=== PATIENT | male | born 1965 | race Native Hawaiian/Other Pacific Islander ===

== ENCOUNTER 2020-06-14 18:53 | Emergency (ER) | payer SELFPAY ==
[~2020-06-14] VITALS: Ht 152 cm; Wt 77.1 kg
--- NOTE | 2020-06-14 19:23 | ED General ---
General Chief Complaint: Fever-Adult/Adol Stated Complaint: FEVER Source of Information: Patient Exam Limitations: No Limitations History of Present Illness Date Seen by Provider: Jun 14, 2020 Time Seen by Provider: 19:15 Initial Comments Patient is a 55-year-old male who presents to the emergency room desiring a COVID-19 test. Patient states that for the last week he has had "chills" and subjective fever. Patient does not know how high his temperature has been. He denies sore throat he states he had a little bit of runny nose last week. He denies earache congestion currently. No cough or shortness of breath. No abdominal pain, nausea, vomiting or diarrhea. He states he is not had any sick contacts and again just requested COVID-19 test. No other complaints of illness or injury. All other review of systems reviewed and negative except as stated above. Timing/Duration: 1 Week Severity: Mild Associated Systoms: Denies Symptoms Allergies and Home Medications Allergies Coded Allergies: No Known Drug Allergies (Unverified , 06/14/20) Patient Home Medication List Home Medication List Reviewed: Yes Review of Systems Review of Systems Constitutional: see HPI EENTM: no symptoms reported Respiratory: no symptoms reported Cardiovascular: no symptoms reported Gastrointestinal: no symptoms reported Genitourinary: no symptoms reported Musculoskeletal: no symptoms reported Skin: no symptoms reported All Other Systems Reviewed Negative Unless Noted: Yes Past Rwiuzic-Trthzg-Djmkqz Hx Patient Social History Recent Foreign Travel: No Contact w/Someone Who Travel: No Physical Exam Vital Signs Vital Signs - First Documented 06/14/20 19:10 Temp 36.7 Pulse 93 Resp 14 B/P (MAP) 141/87 (105) Pulse Ox 97 O2 Delivery Room Air Capillary Refill : Height, Weight, BMI Height: '" Weight: lbs. oz. kg; BMI Method: General Appearance: No Apparent Distress, WD/WN Eyes: Bilateral Eye PERRL, Bilateral Eye EOMI Respiratory: Lungs Clear, Normal Breath Sounds, No Accessory Muscle Use Cardiovascular: Regular Rate, Rhythm Gastrointestinal: Non Tender, Soft Extremity: Non Tender, No Pedal Edema Neurologic/Psychiatric: Alert, Oriented x3, No Motor/Sensory Deficits, Normal Mood/Affect Skin: Normal Color, Warm/Dry Progress/Results/Core Measures Suspected Sepsis SIRS Temperature: Pulse: Respiratory Rate: Blood Pressure / Mean: Results/Orders Lab Results Laboratory Tests Test 06/14/20 19:14 Range/Units Coronavirus 2019 ([facility]) Negative Negative My Orders Orders - KIRSTEN SMILEY MD Covid 19 Inhouse Test (06/14/20 20:07) Vital Signs/I&O 06/14/20 19:10 Temp 36.7 Pulse 93 Resp 14 B/P (MAP) 141/87 (105) Pulse Ox 97 O2 Delivery Room Air Capillary Refill : Progress Note : Time: 19:26 Progress Note 55-year-old male presents to the emergency room with a chief complaint of desiring a COVID-19 test. Evaluation today includes a physical exam. Patient clinically appears well satting 98 to 99% on room air. Normal blood pressure pu lse and respiratory rate. No clinical or objective findings to warrant further testing from the emergency department. Departure Impression Primary Impression: Viral syndrome Disposition: 01 HOME, SELF-CARE Condition: Stable Departure-Patient Inst. Decision time for Depature: 20:48 Referrals: NO,LOCAL PHYSICIAN (PCP/Family) Primary Care Physician Patient Instructions: Viral Syndrome (DC) Add. Discharge Instructions: Drink plenty of fluids to stay well-hydrated. Take Tylenol or ibuprofen as needed for fevers and chills. Please follow-up with your primary care physician. KIRSTEN SMILEY MD Jun 14, 2020 19:23
[2020-06-14 20:57] VITALS: BP 141/87
== END 2020-06-14 20:57 | disposition home or self-care (01) ==
LOC: ER 18:58
DX: B34.9 Viral infection, unspecified (principal); Z20.828 Contact with and (suspected) exposure to other viral communicable diseases
CPT/HCPCS: 99281; U0002; 87635